=== PATIENT | male | born 1960 | race Caucasian/White ===

== ENCOUNTER 2017-04-17 19:04 | Emergency (ER) | payer OTHER ==
[~2017-04-17] VITALS: Ht 175.3 cm; Wt 61.2 kg
--- NOTE | 2017-04-17 19:31 | ER Report ---
History and Physical Time Seen By MD: 19:14 Hx. of Stated Complaint: LEFT ARM DISCOMFORT. GONE NOW. TINGLY IN EXTREMETIES HPI/ROS CHIEF COMPLAINT: Anxiety, chest pain, extremity numbness HISTORY OF PRESENT ILLNESS: Patient is a 56-year-old male accompanied by his significant other, who presents the ED with complaint of chest pain that he 1st noted this morning. He states that this didn't dissipate and then came back again about 3 hours ago. He states that he has had issues with anxiety in the past and feels like this may be related to that. He denies any radiation of the pain except for he was having some numbness and tingling into his left arm primarily but then he started noticing isn't all 4 extremities. He states that he is not having pain radiating into his jaw. He denies any nausea or vomiting. He denies any shortness of breath. He has no history of lung or heart issues in the past. He states that he does not take any medication for his anxiety. States his chest pain did resolve these no longer having any pain or any numbness or tingling. REVIEW OF SYSTEMS: Constitutional: No fever, no chills. Eyes: No discharge. ENT: No sore throat. Cardiovascular: See history of present illness. No palpitations. Respiratory: No cough, no shortness of breath. Gastrointestinal: No abdominal pain, no vomiting. Genitourinary: No hematuria. Musculoskeletal: No back pain. Skin: No rashes. Neurological: No headache. Allergies: Coded Allergies: No Known Drug Allergies (Unverified , 04/17/17) Home Meds No Active Prescriptions or Reported Meds Reviewed Nurses Notes: Yes Old Medical Records Reviewed: Yes Constitutional Vital Sign - Last 24 Hours 04/17/17 19:10 Temp 99.0 Pulse 83 Resp 16 B/P (MAP) 156/77 Pulse Ox 94 O2 Delivery Room Air Physical Exam General Appearance: The patient is alert, has no immediate need for airway protection and no signs of toxicity. Patient appears to be in no acute distress. Eyes: Pupils equal and round no pallor or injection. ENT, Mouth: Mucous membranes are moist. Respiratory: There are no retractions, lungs are clear to auscultation. Cardiovascular: Regular rate and rhythm. Gastrointestinal: Abdomen is soft and non tender, no masses, bowel sounds normal. Neurological: Cranial nerves II-12 intact. Skin: Warm and dry, no rashes. Musculoskeletal: Neck is supple non tender. Extremities are nontender, nonswollen and have full range of motion. DIFFERENTIAL DIAGNOSIS: After history and physical exam differential diagnosis was considered for chest pain including but not limited to myocardial ischemia, pericarditis pulmonary embolus, chest wall pain, pleural inflammation and pulmonary infectious causes. Medical Decision Making Data Points Result Diagram: 04/17/17193404/17/171934 Laboratory Hematology Test 04/17/17 19:35 Red Blood Count 4.91 M/uL (4.00-5.60) Mean Corpuscular Volume 99.5 fL (80.0-96.0) Mean Corpuscular Hemoglobin 34.1 pg (26.0-33.0) Mean Corpuscular Hemoglobin Concent 34.3 g/dL (32.0-36.0) Red Cell Distribution Width 13.2 % (11.5-14.5) Mean Platelet Volume 8.8 fL (7.2-11.1) Neutrophils (%) (Auto) 41.1 % (39.4-72.5) Lymphocytes (%) (Auto) 49.3 % (17.6-49.6) Monocytes (%) (Auto) 6.6 % (4.1-12.4) Eosinophils (%) (Auto) 2.0 % (0.4-6.7) Basophils (%) (Auto) 1.0 % (0.3-1.4) Nucleated RBC Relative Count (auto) 0.1 /100WBC Neutrophils # (Auto) 3.0 K/uL (2.0-7.4) Lymphocytes # (Auto) 3.5 K/uL (1.3-3.6) Monocytes # (Auto) 0.5 K/uL (0.3-1.0) Eosinophils # (Auto) 0.1 K/uL (0.0-0.5) Basophils # (Auto) 0.1 K/uL (0.0-0.1) Nucleated RBC Absolute Count (auto) 0.01 K/uL Sodium Level 140 mmol/L (137-145) Potassium Level 4.2 mmol/L (3.5-5.0) Chloride Level 101 mmol/L (98-107) Carbon Dioxide Level 27 mmol/L (22-30) Blood Urea Nitrogen 36 mg/dl (9-21) Creatinine 1.00 mg/dl (0.66-1.25) Glomerular Filtration Rate Calc > 60.0 Random Glucose 107 mg/dl (75-110) Calcium Level 9.3 mg/dl (8.4-10.2) Total Bilirubin 0.4 mg/dl (0.2-1.3) Aspartate Amino Transf (AST/SGOT) 35 U/L (0-35) Alanine Aminotransferase (ALT/SGPT) 54 U/L (0-56) Alkaline Phosphatase 97 U/L (0-126) Troponin I < 0.012 ng/ml Total Protein 7.1 gm/dl (6.3-8.2) Albumin 4.1 g/dl (3.5-5.0) Chemistry Test 04/17/17 19:35 White Blood Count 7.2 k/uL (4.5-11.0) Red Blood Count 4.91 M/uL (4.00-5.60) Hemoglobin 16.7 g/dL (14.0-18.0) Hematocrit 48.8 % (42.0-52.0) Mean Corpuscular Volume 99.5 fL (80.0-96.0) Mean Corpuscular Hemoglobin 34.1 pg (26.0-33.0) Mean Corpuscular Hemoglobin Concent 34.3 g/dL (32.0-36.0) Red Cell Distribution Width 13.2 % (11.5-14.5) Platelet Count 184 K/uL (150-450) Mean Platelet Volume 8.8 fL (7.2-11.1) Neutrophils (%) (Auto) 41.1 % (39.4-72.5) Lymphocytes (%) (Auto) 49.3 % (17.6-49.6) Monocytes (%) (Auto) 6.6 % (4.1-12.4) Eosinophils (%) (Auto) 2.0 % (0.4-6.7) Basophils (%) (Auto) 1.0 % (0.3-1.4) Nucleated RBC Relative Count (auto) 0.1 /100WBC Neutrophils # (Auto) 3.0 K/uL (2.0-7.4) Lymphocytes # (Auto) 3.5 K/uL (1.3-3.6) Monocytes # (Auto) 0.5 K/uL (0.3-1.0) Eosinophils # (Auto) 0.1 K/uL (0.0-0.5) Basophils # (Auto) 0.1 K/uL (0.0-0.1) Nucleated RBC Absolute Count (auto) 0.01 K/uL Glomerular Filtration Rate Calc > 60.0 Calcium Level 9.3 mg/dl (8.4-10.2) Total Bilirubin 0.4 mg/dl (0.2-1.3) Aspartate Amino Transf (AST/SGOT) 35 U/L (0-35) Alanine Aminotransferase (ALT/SGPT) 54 U/L (0-56) Alkaline Phosphatase 97 U/L (0-126) Troponin I < 0.012 ng/ml Total Protein 7.1 gm/dl (6.3-8.2) Albumin 4.1 g/dl (3.5-5.0) EKG/Imaging EKG Interpretation 12 lead EKG: Rhythm: Normal sinus rhythm, rate 80 bpm [place]: normal QRS: normal ST segments: normal ED Course/Re-evaluation ED Course Will obtain labs and EKG. 04/17/2017 8:19:59 pm -discussed all labs and EKG with patient. Everything is essentially normal. Advised that this likely is related to anxiety. He should follow-up with his primary care provider. Decision to Disposition Date: Apr 17, 2017 Decision to Disposition Time: 20:20 Depart Departure Latest Vital Signs Vital Signs Date Time Temp Pulse Resp B/P (MAP) Pulse Ox O2 Delivery O2 Flow Rate FiO2 04/17/17 19:10 99.0 83 16 156/77 94 Room Air Impression: Primary Impression: Chest pain Additional Impression: Anxiety Condition: Improved Disposition: HOME OR SELF-CARE New Scripts No Active Prescriptions or Reported Meds Patient Instructions: Anxiety (ED), Chest Pain (ED) Additional Instructions: Follow-up with primary care provider in 2-3 days. If having any worsening or concerning symptoms may return to the emergency department. Problem Qualifiers Primary Impression: Chest pain Chest pain type: unspecified Qualified Codes: R07.9 - Chest pain, unspecified EVARISTO URBINA PA-C Apr 17, 2017 19:31
[2017-04-17 19:42] LABS: PLATELET COUNT, AUTOMATED 184 K/uL (150-450)
[2017-04-17 20:29] VITALS: BP 123/73
--- NOTE | 2017-04-17 22:51 | EKG ---
FACILITY: [facility] [place]IENT NAME: JUNAID MOSHER : [id number] MR: [id number] V: [id number] EXAM DATE: ORDERING PHYSICIAN: EVARISTO URBINA TECHNOLOGIST: MARIN Test Reason : CHEST PAIN Blood Pressure : / mmHG Vent. Rate : 080 BPM Atrial Rate : 080 BPM P-R Int : 146 ms QRS Dur : 088 ms QT Int : 382 ms P-R-T Axes : 080 089 074 degrees QTc Int : 440 ms Normal sinus rhythm Normal ECG When compared with ECG of 17-APR-2017 19:34, Sinus rhythm has replaced Ectopic atrial rhythm QRS axis shifted left Confirmed by CHRISTELLE SALAZAR ([id number]) on 04/18/2017 6:48:45 AM Referred By: Confirmed By:CHRISTELLE SALAZAR
== END 2017-04-17 20:34 | disposition home or self-care (01) ==
LOC: ER 19:21
DX: R07.9 Chest pain, unspecified (principal); F41.9 Anxiety disorder, unspecified
CPT/HCPCS: 36415; 82040; 82247; 82310; 82374; 82435; 82565; 82947; 84075; 84132; 84155; 84295; 84450; 84460; 84484; 84520; 85025; 93005; 99284